=== PATIENT | female | born 1990 | race Caucasian/White ===

== ENCOUNTER 2016-12-11 20:53 | Emergency (ER) | payer OTHER ==
[~2016-12-11] VITALS: Ht 165.1 cm; Wt 75.1 kg
[~2016-12-11 20:53] MED LIST: MULT-506 PO; OXYC5TAB PO; SUBUTEX SL
[2016-12-11 21:03] VITALS: TEMP 36.8; Ht 165.1 cm; Wt 75.1 kg
[2016-12-11] MEDS ORDERED: BUPR8SUB19 PO (21:15)
[2016-12-11] MEDS ORDERED: IBUP-1428 PO (21:15)
[2016-12-11] MEDS ORDERED: KETOROLAC TROMETHAMINE 60 MG/2 ML VIAL IM STA (21:40)
[2016-12-11 22:05] VITALS: BP 120/83; PULSE 78; O2SAT 98
--- NOTE | 2016-12-11 23:19 | EMERGENCY ROOM VISIT NOTE ---
History First contact with patient: 21:13 Chief Complaint: DENTAL PAIN Stated Complaint: DRY SOCKET Nursing Triage Summary: upper right dental pain History of Present Illness The patient is a 26 year old female who presents to the Emergency Room with complaints of right upper dental pain after having a dental extraction performed yesterday "by a dentist in [place]". The patient does not know the name of the practice or dentist. The patient admits that she did smoke cigarettes after her extraction, and now has severe pain, chills and nausea. She did not try to call her dentist today, and currently rates her discomfort an 8 out of 10. The patient has had a dry socket in the past with a prior dental extraction. Review of Systems 10 system review was performed and was negative except for pertinent positives and negatives as indicated in history of present illness Past Medical/Surgical History Medical Problems: (1) 37 weeks gestation of (2) Contusion of multiple sites (3) Contusion of multiple sites (4) Encounter for sterilization (5) Fall (6) IUGR, Family History Unremarkable Social History Smoking Status: Current Every Day Smoker Alcohol Use: occasionally Drug Use: none Marital Status: single Housing Status: lives with family Occupation Status: unemployed Current/Historical Medications Scheduled Buprenorphine Hcl (Subutex), 8 MG PO BID Scheduled PRN Ibuprofen (Motrin), 800 MG PO BID PRN for Pain Physical Exam Vital Signs Date Time Temp Pulse Resp B/P (MAP) Pulse Ox O2 Delivery O2 Flow Rate FiO2 12/11/16 22:05 78 18 120/83 98 12/11/16 21:03 36.8 96 16 121/84 100 Room Air Physical Exam CONSTITUTIONAL: Healthy and well nourished. Alert and oriented X 3 with positive affect. Patient appears in mild to moderate discomfort. HEENT: Normocephalic, atraumatic. Pupils equal, round and reactive. No facial edema noted. OROPHARYNX: Examination shows evidence for a right molar extraction with no surrounding gingival erythema, fluctuance, purulent drainage or active bleeding. NECK: Full active range of motion without discomfort. RESPIRATORY: Clear to auscultation bilaterally with no wheezing, crackles, rhonchi or stridor. CARDIOVASCULAR: Regular rate and rhythm with no murmurs, rubs or gallops. INTEGUMENTARY: No rash or other significant dermatologic conditions noted. NEUROLOGIC: Facial sensations are intact. Medical Decision & Procedures Medications Administered Medications (Trade) Dose Ordered Sig/Beverly Route Start Time Stop Time Status Last Admin Dose Admin Ketorolac Tromethamine (Toradol Inj) 60 mg NOW STAT IM 12/11/16 21:40 12/11/16 21:41 DC 12/11/16 21:54 60 MG ED Course Patient history and physical exam were performed. Nurse's notes were reviewed. Vital signs were reviewed and were normal. Review of the [place] Prescription Drug Monitoring Program shows that the patient is currently on buprenorphine. The patient was administered Toradol 60 mg IM, and instructed to contact her dentist tomorrow for further management. She was encouraged to alternate ibuprofen and Tylenol for baseline pain relief. The patient was advised that she would need to contact her pain management clinic to discuss further pain management options since she is currently on buprenorphine. The patient was advised that her pain was likely precipitated by smoking, and was encouraged to further refrain from smoking. The patient voiced understanding of all discharge instructions, was happy with plan of care, and rated her pain a 6 out of 10 at the conclusion of my exam. [facility] Decision [place] Drug Monitoring Program Search Results: patient reviewed within database, see additional documentation Blood Pressure Screening Patient's blood pressure: Normal blood pressure Impression Primary Impression: Post extraction dental pain Departure Information Dispostion Home / Self-Care Forms HOME CARE DOCUMENTATION FORM, IMPORTANT VISIT INFORMATION Patient Instructions [facility] Additional Instructions Call your dentist first thing in the morning and advise them that you were in the emergency department for a dry socket. Refrain from smoking. Ibuprofen 800 mg and/or Tylenol 1000 mg every 8 hours. You may also alternate these medications for more effective pain relief: Ibuprofen --4 HRS--> Tylenol --4 HRS--> ibuprofen --4 HRS--> Tylenol .... You may also call your pain management clinic and ask if there are any other pain management options while taking buprenorphine.
== END 2016-12-11 22:07 | disposition home or self-care (01) ==
LOC: C.EDB 20:54 → C.EDD 22:07
DX: K08.89 Other specified disorders of teeth and supporting structures (principal); G89.18 Other acute postprocedural pain; F17.210 Nicotine dependence, cigarettes, uncomplicated